=== PATIENT | male | born 1965 | race Caucasian/White ===

== ENCOUNTER 2024-01-12 07:39 | Outpatient (CLI) | payer OTHER, SELFPAY ==
--- NOTE | ~2024-01-12 | PE_ITS ---
EXAMINATION: PET_PETPSMAST_PT DATE: 01/12/2024 09:51 INDICATION: Prostate cancer. TECHNIQUE: 5.094 mCi of Ga-68 gozetotide was administered intravenously. Low dose computed tomography (CT) images were acquired from the base of the brain to the proximal thighs for attenuation correcti on and anatomic localization. Automated exposure control was employed. Dose-length product (DLP) was 1306 mGy-cm. Positron emission tomography (PET) images were acquired in the same distribution. COMPARISON: None FINDINGS: Head/neck: There are no pathologically enlarged lymph nodes. Chest: There is no pneumonia or pleural effusion. Cardiomegaly is noted. No pericardial effusion. The re are no pathologically enlarged lymph nodes. Abdomen/pelvis/proximal thighs: The liver, gallbladder, spleen, pancreas, adrenal glands, and right k idney are normal. There is a 4 mm stone in left kidney. There are bilateral inguinal hernias containi ng fat. The prostate is moderately enlarged. There is increased activity in the peripheral zone on th e left with maximum SUV of 5.8. There are no dilated loops of bowel. The appendix is normal. There ar e no pathologically enlarged lymph nodes. There is no free intraperitoneal fluid. There is no osseous malignancy. IMPRESSION: 1. Moderately enlarged prostate with focal increased activity in the peripheral zone on the left, con sistent with primary malignancy. No evidence of metastatic disease. Reviewed, dictated and finalized at location A. FI[employer]NAGER IMPRESSION: 1. Moderately enlarged prostate with focal increased activity in the peripheral zone on the left, consistent with primary malignancy. No evidence of metastati c disease.
== END 2024-01-12 07:40 | disposition home or self-care (01) ==
PROVIDERS: PCP Family Medicine; Visit Provider Urology
DX: C61 Malignant neoplasm of prostate (principal)
CPT/HCPCS: 78815; A9596